=== PATIENT | female | born 1985 | race Caucasian/White ===

== ENCOUNTER 2020-10-07 19:23 | Emergency (ER) | payer OTHER ==
[~2020-10-07] VITALS: Ht 165.1 cm; Wt 50.0 kg
--- NOTE | 2020-10-07 19:57 | NUR ---
MOTHER AT BEDSIDE
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
--- NOTE | 2020-10-07 20:55 | NUR ---
PT SITTING UP IN BED, TALKING WITH MOTHER. MOTHER PACING ROOM ON CELL PHONE. VSS. NO EVIDENCE OF EMESIS SINCE ARRIVAL.
--- NOTE | 2020-10-07 21:18 | NUR ---
RN IN TO ANSWER CALL LIGHT, MOTHER REPORTING PT'S STATEMENTS OF SI "SHE NEEDS PSYCHIATRIC EVALUATION. SHE KEEPS TELLING ME THAT SHE- MAYBE NOT TODAY OR TOMORROW, BUT SHE WILL BE GONE ONE DAY". ERP AWARE OF MOTHER'S CONCERNS AND AGREES TO PSYCH/SI WORK UP PENDING PSYCH EVAL WHEN SOBER. PT/MOTHER UPDATED TO POC. MOTHER BECAME VERBALLY AGGRESSIVE WITH RN WHO REITERATED APPROPRIATE AND ACCEPTABLE PATIENT/VISITOR BEHAVIOR WITH PT/MOTHER. PT/MOTHER DEMONSTRATE UNDERSTANDING.
[2020-10-07 22:01] LABS: BASOPHILS % (AUTO) 0 % (0-1); EOSINOPHILS % (AUTO) 0 % (1-7); LYMPHOCYTES % (AUTO) 23 % (22-44); MEAN CORPUSCULAR HEMOGLOBIN 30.3 pg (27.0-34.8); MEAN CORPUSCULAR HGB CONC 34.1 g/dL (32.4-35.8); MONOCYTES % (AUTO) 2 % (2-9); NEUTROPHILS % (AUTO) 74 % (42-75); PLATELET COUNT 258 x10^3/uL (130-400); RED BLOOD COUNT 4.56 x10^6/uL (3.82-5.3); RED CELL DISTRIBUTION WIDTH 13.2 % (9.6-15.2)
[2020-10-07 22:02] LABS: ALBUMIN 3.9 g/dL (3.4-5.0); ANION GAP 6 mmol/L (5-15); CALCIUM 8.2 mg/dL (8.5-10.1); CHLORIDE 104 mmol/L (98-107); CREATININE 0.73 mg/dL (0.55-1.02)
[2020-10-07 22:04] LABS: SALICYLATE LEVEL < 1.7 mg/dL (2.8-20.0)
--- NOTE | 2020-10-07 23:07 | NUR ---
PT TO ROOM 2 TO AWAIT PSYCH EVAL. ROOM SECURE, SITTER AT DOORWAY FOR CONTINUED OBS. ALL BELONGINGS, INCLUDING PURSE, CLOTHING, AND CELL PHONE IN BELONGINGS BAG AND GIVEN TO MOTHER TO TAKE HOME. PT AMBULATED STEADILY TO BATHROOM TO PROVIDE UDS. UDS COLLECTED AND SENT TO LAB
--- NOTE | 2020-10-07 23:15 | NUR ---
REPORT TO LOY VALDEZ
--- NOTE | 2020-10-07 23:25 | NUR ---
Pt resting at this time. room secured. Pt lying in bed, call modi within reach. Resting comfortably, denies further needs.
[2020-10-07 23:35] LABS: AMPHETAMINE SCREEN, URINE Negative (Negative); BARBITURATE SCREEN, URINE Negative (Negative); BENZODIAZEPINE SCREEN, URINE Negative (Negative); CANNABINOID SCREEN, URINE Positive (Negative); COCAINE SCREEN, URINE Negative (Negative); METHADONE SCREEN, URINE Negative (Negative); OPIATE SCREEN, URINE Negative (Negative)
--- NOTE | 2020-10-07 23:49 | NUR ---
Patient provided with p.o. fluids and food. Patient denies further needs she is resting in bed, comfortable cooperative at this time. Lights dimmed room secured. We will continue to monitor patient.
--- NOTE | 2020-10-08 | NUR ---
Patient resting comfortably. Eyes closed respirations even unlabored. Patient to be evaluated by telemetry psych once clinically sober. Patient has snacks and p.o. fluids at bedside. Sitter outside of room, patient denies further needs we will continue to monitor.
--- NOTE | 2020-10-08 01:09 | NUR ---
Report to LOY Sandy no further questions. Care relinquished.
--- NOTE | 2020-10-08 01:47 | NUR ---
REPORT FROM ALDO ASSUMED CARE OF PT AT THIS TIME
--- NOTE | 2020-10-08 02:08 | NUR ---
PT RESTING ON GURROBINA, SITTER WATCHING FOR SAFETY.
--- NOTE | 2020-10-08 03:59 | NUR ---
pt sleeping in nad sitter at bedside
--- NOTE | 2020-10-08 05:21 | NUR ---
pt sleeping in nad sitter at bedside
--- NOTE | 2020-10-08 06:55 | NUR ---
RECEIVED REPORT FROM JOSSUE. PT SLEEPING ON GURNEY CALMLY, NAD WITH EQUAL CHEST RISE/FALL, NO NEEDS AT THIS TIME, PT REMAINS IN SAFE ENVIRONMENT, SITTER IN VIEW.
--- NOTE | 2020-10-08 08:03 | NUR ---
PT CONTINUES CALMLY SLEEPING ON GURNEY, NAD WITH EQUAL CHEST RISE/FALL, NO NEEDS AT THIS TIME, PT REMAINS IN SAFE ENVIRONMENT, SITTER IN VIEW.
--- NOTE | 2020-10-08 08:35 | NUR ---
BREAKFAST TRAY GIVEN
[2020-10-08 08:58] VITALS: BP 100/64
--- NOTE | 2020-10-08 09:00 | NUR ---
PT LAYING ON GURNEY WITH EYES CLOSED, AWAKENS & RESPONDS APPROP TO STAFF. CALM & COOPERATIVE, NAD, COMFORT MEASURES PROVIDED, PT REMAINS IN SAFE ENVIRONMENT, SITTER IN VIEW.
--- NOTE | 2020-10-08 10:02 | NUR ---
PT CONTINUES LAYING ON GURNEY WITH EYES CLOSED, AWAKENS & RESPONDS APPROP TO STAFF. CALM & COOPERATIVE, NAD, NO NEEDS AT THIS TIME, REMAINS IN SAFE ENVIRONMENT, SITTER IN VIEW.
--- NOTE | 2020-10-08 10:33 | NUR ---
PT MOM ARRIVED AT BS
--- NOTE | 2020-10-08 11:04 | NUR ---
PT LAYING ON GURNEY WITH EYES CLOSED, AWAKENS & RESPONDS APPROP TO STAFF. CALM & COOPERATIVE, NAD, NO NEEDS AT THIS TIME, MOM AT BS, PT REMAINS IN SAFE ENVIRONMENT, SITTER IN VIEW.
--- NOTE | 2020-10-08 11:30 | NUR ---
SEEN BY PSYCH DEMIAN DONNELLY.
--- NOTE | 2020-10-08 12:02 | NUR ---
PT CONTINUES LAYING ON GURNEY AWAKE, CALM & COOPERATIVE, RESPONDS APPROP TO STAFF. NAD, NO NEEDS AT THIS TIME, AWAITING MOM RETURN WITH CLOTHES FOR DC HOME, REMAINS IN SAFE ENVIRONMENT, SITTER IN VIEW.
--- NOTE | 2020-10-08 12:35 | NUR ---
LUNCH TRAY GIVEN
--- NOTE | 2020-10-08 13:00 | NUR ---
PT LAYING ON GURNEY AWAKE, CALM & COOPERATIVE WHILE WAITING FOR MOM TO RETURN, RESPONDS APPROP TO STAFF. NAD, NO NEEDS AT THIS TIME, REMAINS IN SAFE ENVIRONMENT, SITTER IN VIEW.
--- NOTE | 2020-10-08 14:02 | NUR ---
PT COTINUES TO LAY ON GURNEY AWAKE, CALM & COOPERATIVE WHILE WAITING FOR MOM TO RETURN WITH CLOTHES/RIDE HOME, RESPONDS APPROP TO STAFF. NAD, NO NEEDS AT THIS TIME, REMAINS IN SAFE ENVIRONMENT, SITTER IN VIEW.
--- NOTE | 2020-10-08 14:07 | NUR ---
MOM ARRIVED WITH CLOTHES, PT DRESSED & GIVEN DC INSTRUCTIONS, VERBALIZED UNDERSTANDING, AMBULATED STEADILY TO DC DESK, PT LEFT WITH ALL PERSONAL BELONGINGS, PWD.
== END 2020-10-07 23:00 ==
LOC: EDBD 19:23 → ED 22:03
DX: F10.120 Alcohol abuse with intoxication, uncomplicated (principal); F33.9 Major depressive disorder, recurrent, unspecified; Y90.0 Blood alcohol level of less than 20 mg/100 ml
CPT/HCPCS: 36415; 80048; 80299; 80307; 80320; 80329; 82040; 84703; 85025; 99283; G0480